=== PATIENT | female | born 1950 | race Caucasian/White ===

== ENCOUNTER 2017-10-11 15:44 | Emergency (ER) | payer OTHER, MEDICARE ==
--- NOTE | 2017-10-11 16:45 | ED ---
Neck Pain - HPI Summary HPI Summary: 67 yr old woke up with stiff neck on Thursday morning. The patient states when she was driving to work thursday that she noticed trying to turn head side to side when driving was met with stiffness and discomfort, mostly on the right posterior neck muscles. She has had spasms. Denies fever, chills. No headache. Denies numbness, tingling weakness in hands and feet. No change in gait. no trauma or falls. No chiropractors in 10 years. - History of Current Complaint Chief Complaint: UCGeneralIllness Stated Complaint: NECK PAIN/STIFFNESS Time Seen by Provider: 10/11/17 16:30 Pain Intensity: 8 - Allergies/Home Medications Allergies/Adverse Reactions: Allergies Allergy/AdvReac Type Severity Reaction Status Date / Time Penicillins Allergy Unknown Verified 10/11/17 16:22 Reaction Details Home Medications: Home Medications Esomeprazole(NF) [Nexium(NF)] 1 cap BID 10/11/17 [History Confirmed 10/11/17] PMH/Surg Hx/FS Hx/Imm Hx GI History: Reports: Hx Ulcer - Surgical History Surgery Procedure, Year, and Place: RIGHT wrist, 1998 Infectious Disease History: No Infectious Disease History: Denies: Traveled Outside the [place] in Last 30 Days - Family History Known Family History: Positive: None - Social History Alcohol Use: Occasionally Substance Use Type: Reports: None Smoking Status (MU): Never Smoked Tobacco Review of Systems Constitutional: Negative Positive: Other - neck spasms Skin: Negative Neurological: Negative All Other Systems Reviewed And Are Negative: Yes Physical Exam Triage Information Reviewed: Yes Vital Signs On Initial Exam: Initial Vitals Temp Pulse Resp BP Pulse Ox 99 F 85 18 134/78 97 10/11/17 16:24 10/11/17 16:24 10/11/17 16:24 10/11/17 16:24 10/11/17 16:24 Vital Signs Reviewed: Yes Appearance: Positive: Well-Appearing, No Pain Distress Skin: Positive: Warm, Skin Color Reflects Adequate Perfusion Head/Face: Positive: Normal Head/Face Inspection Eyes: Positive: EOMI ENT: Positive: Normal ENT inspection. Negative: Muffled voice, Hoarse voice Neck: Positive: No Lymphadenopathy Respiratory/Lung Sounds: Positive: Clear to Auscultation, Breath Sounds Present Cardiovascular: Positive: RRR. Negative: Murmur Abdomen Description: Negative: Distended Musculoskeletal: Positive: Other - limited ROM neck on rotation right and left and on extension. She has spasms right posterior neck muscles. Neurological: Positive: Sensory/Motor Intact, Alert, Oriented to Person Place, Time, CN Intact II-III, Normal Gait, Speech Normal Psychiatric: Positive: Normal - Pop Coma Scale Best Eye Response: 4 - Spontaneous Best Motor Response: 6 - Obeys Commands Best Verbal Response: 5 - Oriented Coma Scale Total: 15 Diagnostics - Vital Signs Vital Signs Temp Pulse Resp BP Pulse Ox 10/11/17 16:24 99 F 85 18 134/78 97 - Laboratory Lab Statement: Any lab studies that have been ordered have been reviewed, and results considered in the medical decision making process. 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 Plan DC home on Flexeril. Any worsening symptoms go to the ER for further evaluation. - Diagnoses Provider Diagnoses: Torticollis Discharge - Sign-Out/Discharge Documenting (check all that apply): Patient Departure - Discharge Plan Condition: Good Disposition: HOME Prescriptions: Cyclobenzaprine TAB* [Flexeril 10 MG TAB*] 10 mg PO BID PRN #10 tab PRN Reason: Spasms - Neck Patient Education Materials: Spasmodic Torticollis (ED) Referrals: Satya Navarro MD [Primary Care Provider] - 1 Day - Billing Disposition and Condition Condition: GOOD Disposition: Home
== END 2017-10-11 16:43 | disposition home or self-care (01) ==
LOC: UCCORT 15:44
DX: M43.6 Torticollis (principal); Z88.0 Allergy status to penicillin
CPT/HCPCS: 99202; G0463